=== PATIENT | male | born 1985 | race Caucasian/White ===

== ENCOUNTER 2023-08-09 10:32 | Emergency (ER) | payer OTHER, SELFPAY ==
[2023-08-09 10:47] VITALS: BP 127/87
[2023-08-09 12:48] VITALS: BP 133/74
--- NOTE | 2023-08-09 13:13 | ED.GENMED ---
History of Present Illness
General
Chief Complaint: Heart Rate Problem
Source: patient
Exam Limitations: none
Time Seen by Provider: 08/09/23 12:46
Nursing documentation reviewed up to this point in time: agreed with
Travel History
Have you had any contact with someone who has COVID-19?: No
Do you have any symptoms of coronavirus? Fever > 100 degrees, chills, cough, shortness of breath, sore throat, loss of taste or smell, muscle aches, or headache?: No
History of Present Illness
History of Present Illness:
Patient is a 38 year old male with hx DM presenting for evaluation of palpitations with associated chest pain. Patient first noticed symptoms when he woke this morning describing a fluttering sensation in his chest with some tightness. He endorses
some radiation of chest tightness into left shoulder. He denies any shortness of breath, nausea, vomiting, diaphoresis, back pain. He thinks that chest pain is somewhat worse with exertion. He checked his heart due to the fluttering sensation and
was found to have a heart rate of 104. Patient did have COVID approximately a month ago and has had some lingering chest tightness and a dry cough since. He does have a history of acid reflux but states this sensation feels much different
He states that he did not sleep well last night and is unsure exactly when chest tightness began.
He denies any recent fever, chills, urinary symptoms, abdominal pain. He has had no recent travel or recent surgeries.
Patient takes a baby aspirin daily. He was recently started on a statin for cholesterol.
Past History
Past History
ED Past Medical History: None
ED Past Surgical History: None
Social History
Tobacco: Non-smoker
Alcohol: None
Drug: None
Phy Exam
Physical Exam
Physical Exam:
General: Well appearing and non-toxic
HEENT: Atraumatic, cephalic; pupils equal round reactive to light bilaterally, protecting airway
Neck: appears supple, no JVD
CV: Regular rate and rhythm, heart sounds normal, no evidence of cyanosis; chest pain non-reproducible, anterior chest wall not tender to palpation
Resp: Lungs clear without any wheezing, rales or rhonchi, no evidence of respiratory distress
Abd: Soft, not non-distended
Extremities: No deformities, no evidence of cyanosis or edema
Neuro: alert and oriented to person place time, speech, no focal motor deficits
Psych: Somewhat anxious appearing
Skin: Intact, no rashes
Course
Orders/Labs/Results
Orders:
Orders
08/09/23 10:48
Electrocardiogram (*1) Urgent
Reason for Study: Palpitations
EKG- Treatment ONCE
08/09/23 12:52
Complete Blood Count/With Diff Urgent
Comprehensive Metabolic Panel Urgent
Magnesium Urgent
TSH Reflex To Free T4 Urgent
Troponin I Urgent
08/09/23 13:11
CR Chest - 2 Views Urgent
Comment:
Reason For Exam: chest tightness, cough
08/09/23 14:56
Ketorolac [Toradol] 15 mg IV NOW STA
Abnormal Lab Results
08/09/23
12:52
WBC 11.6 H 10^3/uL
(4.8-10.8)
MPV 11.2 H fL
(7.4-10.4)
Abs Immat Gran (auto) 0.1 H 10^3/uL
(0-0.05)
Absolute Neuts (auto) 7.5 H 10^3/uL
(1.4-6.5)
Absolute Monos (auto) 0.8 H 10^3/uL
(0.1-0.6)
Immature Gran % 0.7 H %
(0-0.5)
Glucose 101 H mg/dl
(70-99)
08/09/23 12:52
08/09/23 12:52
Vital Signs
Initial and Last Documented VS:
Initial Vital Signs
Temp Pulse Resp BP Pulse Ox
99.0 F 85 16 127/87 98
08/09/23 10:47 08/09/23 10:47 08/09/23 10:47 08/09/23 10:47 08/09/23 10:47
Last Documented Vital Signs
Temp Pulse Resp BP Pulse Ox
99.0 F 83 18 128/71 99
08/09/23 10:47 08/09/23 14:49 08/09/23 14:49 08/09/23 14:49 08/09/23 14:49
MDM/Problems Addressed
Differential Diagnosis Includes:
GERD, arrhythmia, anxiety, pneumonia, doubt ACS or PE
MDM/Problems Addressed:
Patient is a 38-year-old male w/ hx DM presenting for evaluation of heart palpitations with associated chest tightness since early this morning. He endorses some left sided chest pain with radiation to left shoulder. No associated shortness of
breath, nausea, diaphoresis, dizziness, weakness, or back pain. Patient had COVID about 1 month ago and endorses some degree of chest tightness since with a dry cough. Vital signs are stable, afebrile. Physical exam as documented above. He is
well-appearing, heart rate regular, lungs clear. Chest pain is nonreproducible. Will check basic labs, troponin, chest x-ray, EKG. Patient is not hypoxic, no shortness of breath�very low suspicion for PE especially with no signs of DVT on exam.
Patient declining pain medication at this time.
EKG shows normal sinus rhythm without signs of ischemia. CBC with very mild leukocytosis of 11.6, otherwise no clinically significant abnormalities. CMP without clinically significant abnormalities. Initial troponin is negative. Since symptoms
been present for over 6 hours�this is enough to rule out acute [place]. Chest x-ray shows no signs of acute cardiopulmonary process.
Back in to examine patient. He is remains well-appearing and stable but does endorse some lingering pain. Will give 15 mg IV Toradol. Will discharge patient with chest pain hotline and immediate cardiology follow-up within the past 48 hours.
Lengthy discussion regarding return precautions. Patient is comfortable this plan. All questions answered.
Chronic conditions affecting care:
Diabetes
Acute Exacerbation and/or Progression of Chronic Illness:
N/A
*Radiology
Radiology exam reviewed: preliminary read by ED provider and radiology read reviewed
*Pulse Oximetry
Patient hypoxic: no
*EKG
Interpreted by ED Provider?: Yes
EKG Intrepretation Date: 08/09/23
Interpretation: normal
Comparison EKG: no comparison EKG present
Heart Rate: 82
Rate: normal
Rhythm: sinus
Ardara: normal axis
Interval: normal interval
QRS Pattern: normal QRS
Ischemia: no ischemia
*Critical Care Note
Total Time (30-74mins, 75-104mins- exclusive of procedures): Not Applicable
ED Attending Note
-
Portions of this chart may have been created with voice recognition software.� Occasional wrong word or��sound alike� substitutions may have occurred due to the inherent limitations of voice recognition software.
Discharge Plan
Departure
Patient Disposition: Home (Routine Discharge)
Date of Disposition: 08/09/23
Time of Disposition: 14:57
Patient with high blood pressure during this ER visit?: No
Condition: Good
Covid-19: Not Applicable
Discharge Problem:
Heart palpitations, Chest pain of uncertain etiology
Instructions: Chest Pain (DC), Palpitations (DC), Chest Pain DCA Follow Up
Prescriptions:
No Action
Theragen Tablet
1 tab PO DAILY
aspirin 81 mg Tablet,Delayed Release (Dr/Ec)
81 mg PO DAILY
metformin 500 mg Tablet Extended Release 24 Hr
1,000 mg PO DAILY@0800
rosuvastatin [Crestor] 10 mg Tablet
10 mg PO DAILY
Jardiance 25 mg Tablet
25 mg PO DAILY
Liver Complex 250-250 mg Tablet
1 tab PO HS
Patient Comments:
Milk Thistle 3000mg NAC Chanca Mikey 2000mg Beet Root 2000mg Artichoke 2000mg Dandelion Root 1000mg - Liver Cleanse Detox & Repair Supplement Plus TUDCA Choline and Kathy
Referrals:
Jesus Gallagher CRNP [Family Provider] -
Activity Restrictions/Additional Instructions:
-Return to the emergency department with any chest pain, shortness of breath, high fevers, dizziness/lightheadedness, weakness, worsening in current symptoms, or any other concerns
-You should continue to take your medications as prescribed. Stay well hydrated
-You should receive a call from a cardiology office to schedule a follow-up
-You can follow-up with primary care for further evaluation/treatment
Interventions
Interventions:
*Risk Screen - Suicide Last Done: 08/09/23 12:47
*General Assessment Last Done: 08/09/23 12:47
*Neglect/Abuse Screening Last Done: 08/09/23 12:47
ED- Fall Risk Assessment Last Done: 08/09/23 12:47
*ED COVID-19 Vaccine History Last Done: 08/09/23 10:47
*Nursing Disposition Last Done: 08/09/23 15:07
ED- Cardiac Assessment Last Done: 08/09/23 12:47
ED- Pulmonary Assessment Last Done: 08/09/23 12:47
Discharge Date and Time
Discharge Date/Time: 08/09/23 15:19
[2023-08-09 13:17] LABS: % Basophils 0.5 % (0-2); % Eosinophils 1.7 % (0-6); % Immature Granulocytes 0.7 % (0-0.5); % Lymphocytes 25.7 % (20.5-51.1); % Monocytes 7.2 % (1.7-9.3); % Neutrophils 64.2 % (42.2-75.2); Absolute Basophils 0.1 10^3/uL (0-0.2); Absolute Eosinophils 0.2 10^3/uL (0-0.7); Absolute Immature Granulocytes 0.1 10^3/uL (0-0.05); Absolute Monocytes 0.8 10^3/uL (0.1-0.6); Absolute Neutrophils 7.5 10^3/uL (1.4-6.5); Hematocrit 44.9 % (39.0-52.0); Hemoglobin 15.7 g/dL (13.0-18.0); Mean Corpuscular Hgb 30.8 pg (27.0-31.0); Mean Platelet Volume 11.2 fL (7.4-10.4); Nucleated Red Blood Cells % 0 % (-); Platelet Count 222 10^3/uL (130-400); Red Cell Dist. Width 12.5 % (11.5-14.5); White Blood Cell Count 11.6 10^3/uL (4.8-10.8)
[2023-08-09 13:18] LABS: ALT (SGPT) 36 U/L (0-50); AST (SGOT) 31 U/L (17-59); Albumin 4.5 g/dl (3.5-5.0); Alkaline Phosphatase 56 U/L (38-126); Blood Urea Nitrogen 11 mg/dl (9-20); Calcium 9.4 mg/dl (8.4-10.2); Carbon Dioxide 26 mmol/L (22-30); Chloride 104 mmol/L (98-107); Glucose 101 mg/dl (70-99); Magnesium 2.1 mg/dl (1.6-2.3); Potassium 4.6 mmol/L (3.5-5.1); Sodium 136 mmol/L (135-145); Total Bilirubin 0.6 mg/dl (0.2-1.3); Total Protein 7.9 g/dl (6.3-8.2); eGFR > 60.00
[2023-08-09 13:32] LABS: Troponin I < 0.012 ng/ml
[2023-08-09 13:48] LABS: TSH Reflex To Free T4 1.49 uIU/ml (0.47-4.68)
[2023-08-09 14:49] VITALS: BP 128/71
[2023-08-09] MEDS: TORADOL 15 MG IV (15:00)
== END 2023-08-09 15:19 | disposition home or self-care (01) ==
LOC: EMR 10:32
PROVIDERS: EMERGENCY PHYSICIAN Emergency Medicine; FAMILY PHYSICIAN Nurse Practitioner Family
DX: R00.2 Palpitations (principal); R07.89 Other chest pain; E11.9 Type 2 diabetes mellitus without complications; K21.9 Gastro-esophageal reflux disease without esophagitis; Z79.82 Long term (current) use of aspirin
CPT/HCPCS: 99283; 96374; 71046; 80053; 83735; 84443; 84484; 85025; 93005

== ENCOUNTER → 2023-08-25 07:29 | Outpatient (REF) | payer OTHER, SELFPAY | LOC: DHCBS MAIN 07:29 | PROVIDERS: ATTENDING PHYSICIAN Internal Medicine Interventional Cardiology; FAMILY PHYSICIAN Nurse Practitioner Family | DX: R07.9 Chest pain, unspecified (principal) | CPT/HCPCS: 93306 ==

== ENCOUNTER → 2023-08-31 07:48 | Outpatient (REF) | payer OTHER, SELFPAY | LOC: DHCBC/DCA 07:48 | PROVIDERS: ATTENDING PHYSICIAN Internal Medicine Interventional Cardiology; FAMILY PHYSICIAN Nurse Practitioner Family | DX: R07.9 Chest pain, unspecified (principal) | CPT/HCPCS: 78452; 93017; A9500 ==

== ENCOUNTER 2023-09-15 11:51 | Emergency (ER) | payer OTHER, SELFPAY ==
[2023-09-15 11:52] VITALS: BP 163/95; BMI 38.8
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
[2023-09-15 14:07] VITALS: BP 127/74
== END 2023-09-15 14:08 | disposition home or self-care (01) ==
LOC: EMR 11:51
PROVIDERS: EMERGENCY PHYSICIAN Student in an Organized Health Care Education/Training Program; FAMILY PHYSICIAN Nurse Practitioner Family
DX: M54.2 Cervicalgia (principal); S00.03XA Contusion of scalp, initial encounter; S40.812A Abrasion of left upper arm, initial encounter; S40.811A Abrasion of right upper arm, initial encounter; S00.01XA Abrasion of scalp, initial encounter; M54.6 Pain in thoracic spine; V47.0XXA Car driver injured in collision with fixed or stationary object in nontraffic accident, initial encounter; Y92.410 Unspecified street and highway as the place of occurrence of the external cause; R03.0 Elevated blood-pressure reading, without diagnosis of hypertension; E11.9 Type 2 diabetes mellitus without complications
CPT/HCPCS: 99284; 70450; 72125

== ENCOUNTER → 2023-09-19 | Outpatient (REF) | payer OTHER, SELFPAY | LOC: DHSLP | PROVIDERS: ATTENDING PHYSICIAN Internal Medicine Interventional Cardiology; FAMILY PHYSICIAN Nurse Practitioner Family | DX: G47.33 Obstructive sleep apnea (adult) (pediatric) (principal) | CPT/HCPCS: 95800 ==

== ENCOUNTER → 2024-07-26 12:01 | Outpatient (REF) | payer OTHER, SELFPAY | LOC: HWRAD 12:01 | PROVIDERS: ATTENDING PHYSICIAN Nurse Practitioner Family | DX: M54.9 Dorsalgia, unspecified (principal); M54.6 Pain in thoracic spine | CPT/HCPCS: 72072; 72110 ==

== ENCOUNTER → 2025-01-25 11:44 | Outpatient (REF) | payer OTHER, SELFPAY | LOC: RAD 11:44 | DX: M79.671 Pain in right foot (principal) | CPT/HCPCS: 73630 ==